=== PATIENT | female | born 1970 | race Caucasian/White ===

== ENCOUNTER 2017-06-23 11:30 | Inpatient (IN) | payer BC ==
[2017-06-23 12:20] VITALS: BMI 24.5
--- NOTE | 2017-06-27 00:01 | HP ---
DATE OF ADMISSION: 06/27/2017 CHIEF COMPLAINT: Menometrorrhagia. HISTORY OF PRESENT ILLNESS: This is a 46-year-old with complaints of irregular heavy bleeding for a prolonged period of time up to 5-6 weeks in duration. She was on oral contraceptive pills at t he time of her bleeding episodes and would double up on OCPs; however, this stopped working for her ShotClip in February. She does not have significant pelvic pain. She has an ultrasound that shows a uteru s measuring 8.24 x 4.59 x 5.72 cm, right lateral fibroid measuring 1.76 x 1.24 cm, fundal fibroid malcom suring 2.3 x 1.2, a submucosal fibroid measuring 1.69 x 1.34. Right and left ovaries are normal. Cristi nice was counseled on options including hysteroscopic myomectomy with ablation versus definitive managem ent with hysterectomy. The patient wanted the most definitive management in order to resolve her con stant heavy bleeding and desired hysterectomy. She does desire ovarian retention. 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 PAST SURGICAL HISTORY: Plastic surgery on face following MRSA infection. CADET DECK HISTORY: normal vaginal deliveries. Largest baby 8 pounds 6 ounces. GYNECOLOGIC HISTORY: No abnormal Paps, no STDs. CURRENT MEDICATIONS: Iron p.o. daily, metoprolol 25 mg p.o. daily. SOCIAL HISTORY: Negative x3. ALLERGIES: No known drug allergies. FAMILY HISTORY: Colon cancer, paternal grandmother at 70 and chronic hypertension. PHYSICAL EXAMINATION: VITAL SIGNS: Blood pressure 116/68, weight 143, BMI is 24.5, pulse of 84, respirations 18. GENERAL: No acute distress. CARDIAC: Regular rate and rhythm. LUNGS: Clear to auscultation bilaterally. ABDOMEN: Soft, nontender, nondistended. EXTREMITIES: No edema, cyanosis or clubbing. PELVIC: Deferred to the OR. ASSESSMENT AND PLAN: This is a 46-year-old with uterine fibroids, menometrorrhagia, unresponsi ve to medical management with oral contraceptives, desiring definitive management with hysterectomy. I discussed the risk of the surgery to include bleeding, transfusion, infection, damage to surroundi ng structures including bowel, bladder, ureter, blood vessels and nerves, conversion to open procedur e. The patient understands and wishes to proceed desires ovarian retention as long as normal appeari ng, preoperative and postoperative care per surgery were discussed in detail. She will continue fracisco operative beta blockers. She will follow up with me in 2 weeks postoperative time.
[2017-06-27] MEDS ORDERED: CEFAZOLIN/Water 2 GM/20 ML SYRINGE ONE (06:15)
[2017-06-27] MEDS ORDERED: Morphine 10 MG/ML VIAL ONE (06:53)
[2017-06-27] MEDS ORDERED: Fentanyl 100 MCG/2 ML VIAL ONE (06:53)
[2017-06-27] MEDS ORDERED: Lidocaine 2% w/Epinephrine 1:200K 20 ML VIAL ONE (06:54)
[2017-06-27] MEDS ORDERED: Bupivacaine PF 0.5% 30 ML VIAL ONE (06:54)
[2017-06-27] MEDS ORDERED: Midazolam HCl 2 mg/2 ml Vial ONE (07:08)
[2017-06-27] MEDS ORDERED: Promethazine HCl 25 MG/ML VIAL IM PRN ×2 (08:53→09:00)
[2017-06-27] MEDS ORDERED: HYDROmorphone 2 MG/ML VIAL SLOW IVP PRN (08:53)
[2017-06-27] MEDS ORDERED: Meperidine HCl/PF 25 MG/ML VIAL SLOW IVP PRN (08:53)
[2017-06-27] MEDS ORDERED: Promethazine HCl 25 MG/ML VIAL SLOW IVP PRN (08:53)
[2017-06-27] MEDS ORDERED: Ondansetron HCl/PF 4 MG/2 ML Vial IVP PRN ×2 (08:53→09:00)
[2017-06-27] MEDS ORDERED: Acetaminophen 325 MG TAB PO PRN (09:00)
[2017-06-27] MEDS ORDERED: diphenhydrAMINE 25 MG CAP PO PRN (09:00)
[2017-06-27] MEDS ORDERED: HYDROcodone/Acetaminophen 5/325 mg Tablet PO PRN ×2 (09:00)
[2017-06-27] MEDS ORDERED: Zolpidem Tartrate 5 MG TAB PO PRN (09:00)
[2017-06-27] MEDS ORDERED: Bisacodyl 10 MG SUPP PR PRN (09:00)
[2017-06-27] MEDS ORDERED: Morphine 5 MG/ML SYRINGE SLOW IVP PRN (09:56)
[2017-06-27] MEDS: Lactated Ringer's 1,000 ML IV SCH ×2 (10:19→19:33)
[2017-06-27] MEDS: Ketorolac Tromethamine 30 MG/ML VIAL IVP SCH ×3 (10:22→23:28)
--- NOTE | 2017-06-27 12:12 | OP ---
DATE OF PROCEDURE: 06/27/2017 PREOPERATIVE DIAGNOSES: 1. Uterine fibroids. 2. Menometrorrhagia. POSTOPERATIVE DIAGNOSES: 1. Uterine fibroids. 2. Menometrorrhagia. PROCEDURES PERFORMED: Robotic-assisted total laparoscopic hysterectomy and bilateral salpingectomy. ANESTHESIA: General endotracheal. ATTENDING SURGEON: Jessie Dean M.D. BICYCLE SUBASSEMBLER: Parmjit Pereira M.D. ESTIMATED BLOOD LOSS: 50 mL. INTRAVENOUS FLUIDS: 800 mL crystalloid. URINE OUTPUT: 200 mL of clear urine. PATHOLOGY: Uterus, cervix and bilateral fallopian tubes. COMPLICATIONS: None. DRAINS: Sargent catheter. FINDINGS: A 12-week size mobile uterus with multiple uterine fibroids, sounded to 11 cm, normal appe aring fallopian tubes and ovaries bilaterally normal, remainder of the intra-abdominal survey. OPERATIVE TECHNIQUE: The patient was taken to the operating room where general anesthesia was obtain ed without difficulty. The patient was prepped and draped in a sterile fashion in the dorsal lithoto my position. After performing a time out, a Sargent catheter was placed in the bladder. Speculum was placed in the vagina. Anterior lip of the cervix was grasped with single tooth tenaculum and the gakona artie then sounded to 11 cm. The cervix was progressively dilated with Daniel dilators and the YUSUF sebastian pulator was assembled with a 10 cm tip and a 4 cm colpotomizer ring. The manipulator tip was inserte d to the uterine fundus, balloon was inflated and the tenaculum and speculum were removed out of the vagina. The colpotomizer ring was advanced to fit snugly around the cervix and locked into place. T he vaginal occluder balloon was then inflated and legs were placed in low lithotomy and attention was turned to the abdomen. A mixture of 2% Marcaine with epinephrine and 0.25% Marcaine plain were infiltrated into the umbilicu s. A 12 mm skin incision was made and the Veress needle was passed into the abdomen noting an openin g pressure of 4 mmHg and pneumoperitoneum was obtained without difficulty. The 12 mm trocar was adva nced into the abdomen and confirmed placement with the robotic camera. Steep Trendelenburg was obtai paula. The right and left lower quadrant 8 mm robotic trocars were placed under direct visualization a fter infiltrating with anesthetic mixture. A right upper quadrant operations assistant port that was 11 mm was placed under direct visualization as well after infiltrating with anesthetic. The robot was undocked . The right robotic arm contained the monopolar scissors. The left robotic arm contained a fenestra jean pierre bipolar. The surgeon console took control. The right fallopian tube was grasped and elevated. The mesosalpinx was cauterized sequentially until the uterine cornua was met with the scissors and fe nestrated. The fallopian tube was then clamped across with the fenestrated cauterized and transected with scissors and removed out of the abdomen. The uteroovarian was cauterized with the fenestrated x2 and was transected in the middle and taken down to the round ligament that was cauterized and ramirez sected with the scissors. The posterior leaf of the broad ligament was then dropped down to the leve l of the uterosacral. No retroperitoneum was dissected through bluntly with the fenestrated using a spreading motion and the vessels were began to be skeletonized laterally with the scissors. The ante rior leaf of the broad ligament was taken down undermining with the fenestrated to ensure clear windo w. This was taken down to the level of the bladder flap and bladder fibers were dissected downward w ith blunt dissection with the back end of the scissors and a sharp dissection with scissor tip on cau cricket. Hemostasis was achieved. The bladder flap with the fenestrated. Attention was turned to the left side where the fallopian tube was grasped and elevated. The mesosalpinx was sequentially cauter ized with the fenestrated and transected with scissors until the medial portion was met and then the fallopian tube was clamped across with the fenestrated cauterized and transected with the scissors we re removed out of the abdomen. Uteroovarian was then cauterized with the fenestrated x2 widths and t ransected in the middle with the scissors on cautery. This was taken down to the round ligament that was cauterized and transected and the anterior leaf of the broad ligament was opened up and incised down to the level of the incision from the contralateral side. The posterior leaf of the broad ligam ent was dropped down to the level of the uterosacral undermining with the fenestrated and the retrope ritoneum was dissected through with the blunt dissection of the fenestrated. The vessels were then s keletonized and cauterized. The bladder was confirmed that was taken down well below the level of th e colpotomizer ring anteriorly. The vessels on the right side were then cauterized multiple times wi th the fenestrated. Anterior colpotomy was performed. There was a branch of the uterine on the righ t side that was incised with the colpotomy and this was then hemostatic with the fenestrated cauteriz ation. Once the right lateral apex was met, the fenestrated was slipped underneath the apex and caut erized and then transected dropping down the uterine pedicle below the level of the colpotomizer ring . The left uterine pedicle was then taken down again slipping the fenestrated underneath lateral ape x. There was some venous bleeding from this side and this was hemostatic with use of the fenestrated taking a parallel bite and cauterizing down the uterine pedicle and cardinal ligament. The colpotom y was then completed posteriorly and the uterus was then placed into the vagina. Hemostasis was achi eved at the vaginal cuff and irrigation was performed. The scissors were traded out for the needle d river and the 2-0 Stratafix barbed suture was used to close the cuff in a running fashion with excell ent reapproximation incorporating vaginal mucosa into each bite and posterior peritoneum. This was r un back x2. The needle was then removed out of the abdomen. Copious irrigation was performed of the pelvis. Low pressure check was performed and hemostasis was noted to be excellent. All instruments were then removed from the abdomen. The robot was undocked. The umbilical port incision fascia was closed with a 2-0 Vicryl in a onolda-yx-votcf fashion and the skin was closed with 4-0 Monocryl in a subcuticular fashion and Dermabond was applied. The uterus was removed out of the vagina and the cu ff was checked and noted to have excellent closure and no active bleeding. All instruments were luis lynn out of the vagina. The patient tolerated the procedure well. Sponge, lap, and needle counts wer e correct x2. The patient was taken to recovery room in stable condition. Patient received Ancef 2 grams prior to the procedure.
[2017-06-27] MEDS ORDERED: Dexamethasone 20 MG/5 ML VIAL ONE (15:02)
[2017-06-27] MEDS ORDERED: Propofol 200 MG/20 ML VIAL ONE (15:02)
[2017-06-27] MEDS ORDERED: Ketorolac Tromethamine 30 MG/ML VIAL ONE (15:02)
[2017-06-27] MEDS ORDERED: Lidocaine 1% PF 5 ML VIAL ONE (15:02)
[2017-06-27] MEDS ORDERED: Glycopyrrolate 0.2 MG/ML 5 ML SYRINGE ONE (15:02)
[2017-06-27] MEDS: Docusate Calcium (SURFAK) 240 MG CAP PO SCH (23:28)
[2017-06-27] MEDS: Simethicone Chewable 80 MG TAB PO PRN (23:29)
[2017-06-28 05:52] LABS: Hemoglobin 10.2 g/dL (12.0-16.0); Mean Corpuscular HGB CONC 32.3 g/dL (32.0-36.0); Mean Corpuscular Hemoglobin 28.1 pg (27.0-31.0); Mean Corpuscular Volume 87.2 fl (81.0-99.0); Mean Platelet Volume 7.9 fL (7.4-10.4); Platelet Count 295 thou/uL (130-400); RBC Distribution Width 17.6 % (11.5-14.5); Red Blood Cell (RBC) Count 3.61 mill/uL (4.20-5.40); White Blood Cell (WBC) Count 8.1 thou/uL (4.8-10.8)
[2017-06-28] MEDS ORDERED: Sodium Chloride 0.9% 10 ML ONE (06:24)
[2017-06-28] MEDS: Ketorolac Tromethamine 30 MG/ML VIAL IVP SCH (06:28)
[2017-06-28] MEDS: Lactated Ringer's 1,000 ML IV SCH (06:34)
[2017-06-28] MEDS: Docusate Calcium (SURFAK) 240 MG CAP PO SCH (11:15)
[2017-06-28] MEDS: Simethicone Chewable 80 MG TAB PO PRN (11:15)
[2017-06-28 11:48] VITALS: TEMP 98
[2017-06-28 11:49] VITALS: BP 125/72
[2017-07-02] MEDS ORDERED: Ibuprofen 800 MG TAB PO SCH (14:00)
== END 2017-06-28 11:20 | disposition home or self-care (01) | DRG 743 ==
LOC: SURG A 06-27 06:04 → 3SE 06-27 10:03
PROVIDERS: ADMIT Student in an Organized Health Care Education/Training Program; ATTEND Student in an Organized Health Care Education/Training Program
PROC: 0UT94ZZ Resection of Uterus, Percutaneous Endoscopic Approach (ICD-10-PCS; principal; 2017-06-27)
PROC: 0UT74ZZ Resection of Bilateral Fallopian Tubes, Percutaneous Endoscopic Approach (ICD-10-PCS; 2017-06-27)
PROC: 8E0W4CZ Robotic Assisted Procedure of Trunk Region, Percutaneous Endoscopic Approach (ICD-10-PCS; 2017-06-27)
DX: D25.9 Leiomyoma of uterus, unspecified (principal); I10 Essential (primary) hypertension; N92.0 Excessive and frequent menstruation with regular cycle; Z86.14 Personal history of Methicillin resistant Staphylococcus aureus infection; Z79.899 Other long term (current) drug therapy
CPT/HCPCS: 36415; 85027; 88307; J2270; A4216; J0131; J1100; J1885; J2001; J2250; J2704; J3010; S0020

== ENCOUNTER 2017-06-23 11:53 | Outpatient (CLI) | payer BC ==
[2017-06-23 14:19] LABS: Hemoglobin 10.9 g/dL (12.0-16.0); Mean Corpuscular HGB CONC 33.5 g/dL (32.0-36.0); Mean Corpuscular Hemoglobin 28.5 pg (27.0-31.0); Mean Platelet Volume 8.8 fL (7.4-10.4); Platelet Count 246 thou/uL (130-400); Red Blood Cell (RBC) Count 3.83 mill/uL (4.20-5.40); White Blood Cell (WBC) Count 5.2 thou/uL (4.8-10.8)
[2017-06-23 14:45] LABS: BHCG - Serum Negative (NEGATIVE); Pregs Control Background? CLEAR/WHITE (CLR/WHITE); Pregs Control Bar Appear? YES (CONTROL BAR)
[2017-06-23 14:52] LABS: Anion Gap 11 mmol/L (10-20); BUN (Urea Nitrogen) 11 mg/dL (7.0-18.7); Calc. Creatinine Clearance 0 mL/min (70-130); Calcium 8.8 mg/dL (7.8-10.44); Carbon Dioxide 23 mmol/L (22-29); Chloride 108 mmol/L (98-107); Estimated GFR-MDRD 88; Glucose 75 mg/dL (70-105); Potassium 4.1 mmol/L (3.5-5.1); Sodium 138 mmol/L (136-145)
--- NOTE | 2017-08-22 21:51 | EKG ---
Test Reason : Blood Pressure : / mmHG Vent. Rate : 064 BPM Atrial Rate : 064 BPM P-R Int : 166 ms QRS Dur : 086 ms QT Int : 422 ms P-R-T Axes : 069 075 042 degrees QTc Int : 435 ms Normal sinus rhythm Normal ECG No previous ECGs available Confirmed by ROSENDA AMEZCUA M.D. ([id number]) on 08/22/2017 9:50:50 PM Referred By: NITA Confirmed By:ROSENDA AMEZCUA M.D.
== END 2017-06-23 11:54 | disposition home or self-care (01) ==
LOC: LABBT 11:53
PROVIDERS: ATTEND Student in an Organized Health Care Education/Training Program
DX: Z01.812 Encounter for preprocedural laboratory examination (principal); D21.9 Benign neoplasm of connective and other soft tissue, unspecified; N92.0 Excessive and frequent menstruation with regular cycle
CPT/HCPCS: 80048; 84703; 85027; 86850; 86900; 86901; 93005; 93010

== ENCOUNTER 2017-08-10 12:08 | Outpatient (CLI) | payer BC | END 2017-08-10 12:09 | disposition home or self-care (01) | LOC: BICMAMMO 12:08 | PROVIDERS: ATTEND Obstetrics & Gynecology | DX: Z12.31 Encounter for screening mammogram for malignant neoplasm of breast (principal) | CPT/HCPCS: 77063; 77067 ==

== ENCOUNTER 2018-08-18 14:00 | Outpatient (CLI) | payer BC ==
--- NOTE | 2018-08-23 18:24 | MMO ---
Bilateral MAMMO Bilat Screen [facility]. CLINICAL HISTORY: Patient is 47 years old and is seen for screening. The patient has no family history of breast cancer. The patient has no personal history of cancer. VIEWS: The views performed were: bilateral craniocaudal with tomosynthesis and bilateral mediolateral oblique with tomosynthesis. FILMS COMPARED: The present examination has been compared to prior imaging studies performed at [facility] on 07/16/2004, 06/16/2009, 06/17/2010, 06/22/2011, 06/23/2012, 06/28/2013, 07/03/2014, 07/24/2015, 07/23/2016 and 08/10/2017. MAMMOGRAM FINDINGS: There are scattered fibroglandular densities. There are no suspicious masses, suspicious calcifications, or new areas of architectural distortion. IMPRESSION: THERE IS NO MAMMOGRAPHIC EVIDENCE OF MALIGNANCY. A ROUTINE FOLLOW-UP MAMMOGRAM IN 1 YEAR IS RECOMMENDED. THE RESULTS OF THIS EXAM WERE SENT TO THE PATIENT. ACR BI-RADS Category 1 - Negative MAMMOGRAPHY NOTE: 1. A negative mammogram report should not delay a biopsy if a dominant of clinically suspicious mass is present. 2. Approximately 10% to 15% of breast cancers are not detected by mammography. 3. Adenosis and dense breasts may obscure an underlying neoplasm.
== END 2018-08-18 14:01 | disposition home or self-care (01) ==
LOC: BICMAMMO 14:00
PROVIDERS: ATTEND Obstetrics & Gynecology
DX: Z12.31 Encounter for screening mammogram for malignant neoplasm of breast (principal)
CPT/HCPCS: 77063; 77067

== ENCOUNTER 2021-03-04 11:05 | Outpatient (CLI) | payer BC | END 2021-03-04 11:06 | disposition home or self-care (01) | LOC: BICMAMMO 11:05 | PROVIDERS: ATTEND Obstetrics & Gynecology | DX: Z12.31 Encounter for screening mammogram for malignant neoplasm of breast (principal) | CPT/HCPCS: 77063; 77067 ==

== ENCOUNTER 2022-03-30 08:51 | Outpatient (CLI) | payer BC | END 2022-03-30 08:52 | disposition home or self-care (01) | LOC: BICULT 08:51 | PROVIDERS: ATTEND Obstetrics & Gynecology | DX: N64.89 Other specified disorders of breast (principal) | CPT/HCPCS: G0279 ==

== ENCOUNTER 2023-04-25 13:43 | Outpatient (CLI) | payer BC | END 2023-04-25 13:44 | disposition home or self-care (01) | LOC: BICMAMMO 13:43 | PROVIDERS: ATTEND Obstetrics & Gynecology | DX: Z12.31 Encounter for screening mammogram for malignant neoplasm of breast (principal) | CPT/HCPCS: 77063; 77067 ==